=== PATIENT | female | born 1985 | race African-American/Black ===

== ENCOUNTER 2021-10-07 20:52 | Emergency (ER) | payer BC ==
[2021-10-07 21:19] VITALS: BP 117/78; RESP 16; BMI 28.4
[2021-10-07 21:47] VITALS: TEMP 98.2
[2021-10-07] MEDS ORDERED: SODIUM CHLORIDE 0.9% 500 ML INFUS.BAG IV ONE (23:58)
[2021-10-07] MEDS ORDERED: KETOROLAC TROMETHAMINE 30 MG/1 ML VIAL IVPUSH ONE (23:58)
[2021-10-08] MEDS ORDERED: ACETAMINOPHEN 1000 MG/100 ML BAG IVPB ONE (00:22)
[2021-10-08] MEDS ORDERED: ACETAMINOPHEN INJECTION 100 ML IVPB ONE (00:31)
[2021-10-08 00:38] LABS: PH,URINE 8.5 (5.0-8.0); URINE APPEARANCE CLEAR; URINE BILIRUBIN NEGATIVE (NEGATIVE); URINE COLOR YELLOW; URINE GLUCOSE (UA) NEGATIVE (NEGATIVE); URINE KETONE NEGATIVE (NEGATIVE); URINE LEUK ESTERASE NEGATIVE (NEGATIVE); URINE NITRITE NEGATIVE (NEGATIVE); URINE PROTEIN NEGATIVE (NEGATIVE)
[2021-10-08 00:50] LABS: HEMATOCRIT 38.7 % (32.4-45.2); HEMOGLOBIN 12.8 GM/dL (10.7-15.3); MCH 30.9 pg (25.7-33.7); MCHC 33.1 g/dl (32.0-36.0); MEAN CELL VOLUME 93.3 fl (80-96); MEAN PLT VOLUME 8.3 fl (7.5-11.1); PLATELET COUNT 235 10^3/uL (134-434); RBC 4.15 M/mm3 (3.60-5.2); RDW 17.1 % (11.6-15.6); WHITE BLOOD COUNT 15.3 K/mm3 (4.0-10.0)
[2021-10-08] MEDS ORDERED: DEXAMETHASONE SOD PHOSPHATE 10 MG/1 ML VIAL IVPUSH ONE (01:06)
[2021-10-08] MEDS ORDERED: DEXAMETHASONE SOD PHOSPHATE 10 MG/1 ML VIAL ONE (01:08)
[2021-10-08] MEDS ORDERED: KETOROLAC TROMETHAMINE 30 MG/1 ML VIAL ONE (01:08)
[2021-10-08 01:13] LABS: CALCIUM 9.4 mg/dL (8.5-10.1)
[2021-10-08 01:14] LABS: ALBUMIN 4.2 g/dl (3.4-5.0); BLOOD UREA NITROGEN 4.8 mg/dL (7-18)
[2021-10-08 01:17] LABS: CREATININE 0.8 mg/dL (0.55-1.3)
[2021-10-08 01:19] LABS: BILIRUBIN,TOTAL 0.5 mg/dL (0.2-1); TOT PROT 7.5 g/dl (6.4-8.2)
[2021-10-08] MEDS ORDERED: PENICILLIN V POTASSIUM 500 MG TABLET PO ONE (02:03)
[2021-10-08] MEDS ORDERED: cefTRIAXone SODIUM 1 GM VIAL ONE (02:41)
== END 2021-10-08 02:55 | disposition home or self-care (01) ==
LOC: JER 20:52
PROC: 3E033GC Introduction of Other Therapeutic Substance into Peripheral Vein, Percutaneous Approach (ICD-10-PCS; principal; 2021-10-07)
PROC: 3E023GC Introduction of Other Therapeutic Substance into Muscle, Percutaneous Approach (ICD-10-PCS; principal; 2021-10-07)
DX: R10.9 Unspecified abdominal pain (principal); R07.0 Pain in throat
CPT/HCPCS: 0241U-QW; 36415; 80053; 81003; 84703; 85027; 87086; 87491; 87591; 87651; 99284-25; J1100

== ENCOUNTER 2022-10-13 23:03 | Emergency (ER) | payer OTHER ==
[2022-10-13 23:10] VITALS: BP 112/68; PULSE 67; RESP 18; TEMP 98.2; BMI 33.7
[2022-10-14] MEDS ORDERED: ACETAMINOPHEN 500 MG TABLET (FP) PO ONE (00:31)
[2022-10-14] MEDS ORDERED: LIDOCAINE 5% TOPICAL PATCH TP ONE (00:31)
[2022-10-14] MEDS ORDERED: METHOCARBAMOL 500 MG TABLET PO ONE (00:31)
[2022-10-14] MEDS ORDERED: ACETAMINOPHEN 500 MG TABLET (FP) ONE (00:59)
[2022-10-14] MEDS ORDERED: METHOCARBAMOL 500 MG TABLET ONE (01:00)
[2022-10-14] MEDS ORDERED: LIDOCAINE 5% TOPICAL PATCH ONE (01:00)
[2022-10-14] MEDS ORDERED: LIDOCAINE PATCH REMOVAL MC ONE (13:00)
== END 2022-10-14 02:19 | disposition home or self-care (01) ==
LOC: JER 23:03
DX: S70.11XA Contusion of right thigh, initial encounter (principal); S40.012A Contusion of left shoulder, initial encounter; M25.551 Pain in right hip; V23.49XA Other motorcycle driver injured in collision with car, pick-up truck or van in traffic accident, initial encounter
CPT/HCPCS: 73030-TC-LT-FY; 73060-TC-LT-FY; 73070-TC-LT-FY; 73130-TC-RT-FY; 99284-25

== ENCOUNTER 2022-11-09 17:19 | Emergency (ER) | payer OTHER ==
[2022-11-09 17:33] VITALS: BP 146/89; PULSE 61; RESP 16; TEMP 99.1; BMI 33.7
[2022-11-09] MEDS ORDERED: KETOROLAC TROMETHAMINE 30 MG/1 ML VIAL IM ONE (19:52)
[2022-11-09] MEDS ORDERED: KETOROLAC TROMETHAMINE 30 MG/1 ML VIAL ONE (20:03)
== END 2022-11-09 20:53 | disposition home or self-care (01) ==
LOC: JER 17:19
PROC: 3E0233Z Introduction of Anti-inflammatory into Muscle, Percutaneous Approach (ICD-10-PCS; principal; 2022-11-09)
DX: S81.002A Unspecified open wound, left knee, initial encounter (principal); S71.102D Unspecified open wound, left thigh, subsequent encounter; L08.9 Local infection of the skin and subcutaneous tissue, unspecified; Z48.02 Encounter for removal of sutures; V89.2XXD Person injured in unspecified motor-vehicle accident, traffic, subsequent encounter; Y93.9 Activity, unspecified; Y92.9 Unspecified place or not applicable
CPT/HCPCS: 99284-25